=== PATIENT | female | born 1975 | race Caucasian/White ===

== ENCOUNTER 2017-11-22 21:03 | Emergency (ER) | payer OTHER, MEDICAID, SELFPAY ==
[2017-11-22 21:06] VITALS: BP 178/107; PULSE 112; RESP 18; TEMP 37.7; O2SAT 97; BMI 53.1
--- NOTE | 2017-11-22 21:15 | ED_ITS ---
HPI - Animal Bite <Carley Ly PA-C - Last Filed: 11/22/17 22:08> General Chief Complaint: Animal Bite Stated Complaint: CAT BITE LEFT ARM Time Seen by Provider: 11/22/17 21:14 Source: patient Mode of arrival: ambulatory Limitations: no limitations History of Present Illness HPI narrative: This 42 old female accidentally startled her cat that was lying next to her this morning, and it bit her in the left upper arm. She states that it is red and tender. She has not had any fever. She states that her arm is sore but she is able to move it normally. She states her cat is not vaccinated because she keeps that strictly indoors. She states in childhood she had sepsis secondary to a cat bite so thought she should come in and have this evaluated. She denies other concerns or complaints. She has not had a tetanus vaccine in the last 10 years Related Data Home Medications Medication Instructions Recorded Confirmed cholecalciferol (vitamin D3) 10,000 unit PO #0 02/27/16 [Vitamin D3] Previous Rx's Medication Instructions Recorded BUTALB/ACETAMINOPHEN/CAFFEINE 1 cap PO PRN PRN #30 cap 10/10/16 50/300/40 (Fioricet 50/300/40 MG) topiramate [Topamax] 50 mg PO HS #60 tab 06/12/17 amoxicillin-pot clavulanate 1 tab PO Q12H #19 tab 11/22/17 [Augmentin] Allergies Allergy/AdvReac Type Severity Reaction Status Date / Time latex Allergy Severe RASH Verified 11/22/17 21:12 morphine Allergy Mild EMESIS, Verified 11/22/17 21:12 ITCHING diclofenac Allergy Unknown Verified 11/22/17 21:12 Review of Systems <Carley Ly PA-C - Last Filed: 11/22/17 22:08> Review of Systems All systems reviewed & are unremarkable except as noted in HPI and below Exam <Carley Ly PA-C - Last Filed: 11/22/17 22:08> Narrative Exam Narrative: GENERAL APPEARANCE: Patient sitting comfortably, in no distress. LUNGS: Clear to auscultation bilaterally. HEART: Rate and rhythm regular without murmur, normal S1 and S2, no S3 or S4. DERMATOLOGIC: Left mid anterior upper arm there is a 7 cm diameter nummular mildly edematous patch with 4 scabbed central puncture wounds. It is pink, cool to touch with some faint central ecchymoses. On the posterior upper arm there are multiple linear abrasions NEUROVASCULAR: Left hand is warm and pink with brisk cap refill, sensation is grossly intact MUSCULOSKELETAL: Full range of motion of the left elbow, wrist, and hand. No joint effusion Initial Vital Signs Initial Vital Signs: Vital Signs Temperature 99.8 F H 11/22/17 21:06 Pulse Rate 112 H 11/22/17 21:06 Respiratory Rate 18 11/22/17 21:06 Blood Pressure 178/107 H 11/22/17 21:06 Pulse Oximetry 97 11/22/17 21:06 <Larry Salmeron DO - Last Filed: 11/23/17 05:05> Initial Vital Signs Initial Vital Signs: Vital Signs Temperature 99.8 F H 11/22/17 21:06 Pulse Rate 112 H 11/22/17 21:06 Respiratory Rate 18 11/22/17 21:06 Blood Pressure 178/107 H 11/22/17 21:06 Pulse Oximetry 97 11/22/17 21:06 Course <Carley Ly PA-C - Last Filed: 11/22/17 22:08> Orders Ordered: Discontinued Medications Amoxicillin/Clavulanate Potassium (Augmentin 875-125 Mg) 1 tab PO NOW ONE Stop: 11/22/17 21:24 Last Admin: 11/22/17 21:43 Dose: 1 tab Diphtheria/Tetanus/Acell Pertussis (Adacel) 0.5 ml IM .ONCE ONE Stop: 11/22/17 21:29 Last Admin: 11/22/17 21:44 Dose: 0.5 ml Ibuprofen (Advil) 800 mg PO NOW ONE Stop: 11/22/17 21:24 Last Admin: 11/22/17 21:43 Dose: 800 mg Vital Signs - 8 hr 11/22/17 21:06 Temperature 99.8 F H Pulse Rate 112 H Respiratory Rate 18 Blood Pressure 178/107 H Pulse Oximetry 97 <Larry Salmeron DO - Last Filed: 11/23/17 05:05> Orders Ordered: Discontinued Medications Amoxicillin/Clavulanate Potassium (Augmentin 875-125 Mg) 1 tab PO NOW ONE Stop: 11/22/17 21:24 Last Admin: 11/22/17 21:43 Dose: 1 tab Diphtheria/Tetanus/Acell Pertussis (Adacel) 0.5 ml IM .ONCE ONE Stop: 11/22/17 21:29 Last Admin: 11/22/17 21:44 Dose: 0.5 ml Ibuprofen (Advil) 800 mg PO NOW ONE Stop: 11/22/17 21:24 Last Admin: 11/22/17 21:43 Dose: 800 mg Vital Signs - 8 hr 11/22/17 21:06 Temperature 99.8 F H Pulse Rate 112 H Respiratory Rate 18 Blood Pressure 178/107 H Pulse Oximetry 97 Discharge Plan Departure Patient Disposition: Home, Self-Care Clinical Impression: Cat bite involving extremity Discharge Date/Time: 11/22/17 22:14 Interventions: ED Discharge Assessment Last Done: 11/22/17 22:13 Instructions: DI for Cat Bite Activity Restrictions/Additional Instructions: Monitor your arm for increased swelling, redness, pain or worsening signs of infection such as fever, and return if any over the weekend. 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 Continue ibuprofen for inflammation and swelling. I think some of the redness and tenderness in your arm is from bruising and soft tissue inflammation, but you are at high risk for infection as well so need to be monitored closely. Please follow up with PCP in a few days for recheck Prescriptions: New amoxicillin-pot clavulanate [Augmentin] 875-125 mg tablet 1 tab PO Q12H Qty: 19 RF: 0 No Action cholecalciferol (vitamin D3) [Vitamin D3] 4,000 UNIT capsule 10,000 unit PO Qty: 0 RF: 0 BUTALB/ACETAMINOPHEN/CAFFEINE 50/300/40 (Fioricet 50/300/40 MG) 1 cap PO PRN PRNQty: 30 RF: 1 topiramate [Topamax] 25 MG tablet 50 mg PO HS Qty: 60 RF: 3 Referrals: Felisha Serna PA-C [Primary Care Provider] - <Larry Salmeron DO - Last Filed: 11/23/17 05:05> Cosign ED Attending Joseature Attestation: I was immediately available in the department for consultation. Documentation has been reviewed. I agree with assessment and plan.
[2017-11-22] MEDS: IBUPROFEN 400 MG TABLET 800 MG PO (21:43)
[2017-11-22] MEDS: AMOXICILLIN/CLAV 875/125 MG 1 TAB PO (21:43)
[2017-11-22] MEDS: TET,DIPH,PERTUSS(ACELL),VAC/PF 0.5 ML SYRINGE IM (21:44)
== END 2017-11-22 22:14 | disposition home or self-care (01) ==
PROVIDERS: Emergency Provider Internal Medicine; Family Provider Physician Assistant; PCP Physician Assistant
DX: S41.152A Open bite of left upper arm, initial encounter (principal); W55.01XA Bitten by cat, initial encounter
CPT/HCPCS: 90471; 99283; 90715

== ENCOUNTER 2017-11-23 09:10 | Emergency (ER) | payer OTHER, MEDICAID, SELFPAY ==
[2017-11-23 09:17] VITALS: BP 178/98; PULSE 89; RESP 20; TEMP 37.1; O2SAT 98; BMI 52.7
--- NOTE | 2017-11-23 09:34 | DI.RAD.S_ITS ---
PROCEDURE: XR FOREARM RT 2V INDICATIONS: cat bite swelling r/o fb TECHNIQUE: 2 views of the forearm were acquired. COMPARISON: None. FINDINGS: Bones: No fractures or dislocations. No suspicious bony lesions. Soft tissues: No suspicious soft tissue calcifications or masses. IMPRESSION: Normal for age, source of current symptoms is not seen. No foreign body seen, no gas in the soft tissues found. Dictated by: Saul Hummel M.D. on 11/23/2017 at 10:11 Approved by: Saul Hummel M.D. on 11/23/2017 at 10:11
--- NOTE | 2017-11-23 09:38 | ED_ITS ---
HPI - Skin/Abscess/Foreign Bdy General Chief complaint: Skin/Abscess/Foreign Body Stated complaint: CAT BITE Time Seen by Provider: 11/23/17 09:17 Source: patient, family and old records reviewed History of Present Illness HPI narrative: Patient is a 42-year-old woman who presents with left arm pain. she was bit by her cat yesterday she was seen and evaluated rest evening 1 dose of her Augmentin. She feels like there was pus coming out this morning and that it is more red and swollen. She has no numbness or tingling. Onset (ago): day(s) Location: LUE Related Data Home Medications Medication Instructions Recorded Confirmed cholecalciferol (vitamin D3) 10,000 unit PO #0 02/27/16 [Vitamin D3] Previous Rx's Medication Instructions Recorded BUTALB/ACETAMINOPHEN/CAFFEINE 1 cap PO PRN PRN #30 cap 10/10/16 50/300/40 (Fioricet 50/300/40 MG) topiramate [Topamax] 50 mg PO HS #60 tab 06/12/17 amoxicillin-pot clavulanate 1 tab PO Q12H #19 tab 11/22/17 [Augmentin] Allergies Allergy/AdvReac Type Severity Reaction Status Date / Time latex Allergy Severe RASH Verified 11/22/17 21:12 morphine Allergy Mild EMESIS, Verified 11/22/17 21:12 ITCHING diclofenac Allergy Unknown Verified 11/22/17 21:12 Review of Systems Review of Systems All systems reviewed & are unremarkable except as noted in HPI and below Constitutional Denies chills, Denies fever(s), Denies lethargy and Denies weakness Cardiovascular Denies chest pain Respiratory Denies cough and Denies wheezing Musculoskeletal Reports system reviewed and no additional complaints, except as docu Integumentary/Breasts Reports as per HPI Neurologic Denies weakness Allergic/Immunologic Denies wheezing PFSH Medical History Environmental allergies (Chronic) Surgical History Status post knee surgery (05/27/11) Family History Father Age: 65 Heart disease Mother Age: 65 Heart disease Social History Smoking Status: Former smoker Tobacco: How many years used: 15 alcohol intake: current substance use type: does not use Exam Initial Vital Signs Initial Vital Signs: Vital Signs Temperature 98.8 F 11/23/17 09:17 Pulse Rate 89 11/23/17 09:17 Respiratory Rate 20 11/23/17 09:17 Blood Pressure 178/98 H 11/23/17 09:17 Pulse Oximetry 98 11/23/17 09:17 Const General: cooperative and well developed Nutritional Appearance: obese Orientation: alert, awake, oriented x3 and not confused Resp Effort & Inspection: normal respiratory effort Auscultation: clear to auscultation bilaterally Cardio Pulses: normal peripheral pulses Skin Other: erythema in that marked pen line noted on left arm. Very minimal extension beyond the line. There is no gross pus 3 puncture wounds noted. There scabbed over. Neuro General: alert, awake and oriented x3 Extrem Left upper extremity: elbow/forearm (Contusion, erythema and puncture wounds noted. No gross bony deformity) Details: swelling and distal pulses intact; no deformity Course Orders Ordered: ED Orders 11/23/17 09:34 XR forearm LT 2V Stat Vital Signs - 8 hr 11/23/17 09:17 11/23/17 10:29 Temperature 98.8 F Pulse Rate 89 83 Respiratory Rate 20 14 Blood Pressure 178/98 H Blood Pressure [Right Arm] 161/93 H Pulse Oximetry 98 100 MDM - Skin/Abscess/Foreign Bdy Imaging Data Left forearm: Attestation: I personally reviewed and interpreted this imaging study as follows: Radiologist's impression: PROCEDURE: XR FOREARM RT 2V INDICATIONS: cat bite swelling r/o fb TECHNIQUE: 2 views of the forearm were acquired. COMPARISON: None. FINDINGS: Bones: No fractures or dislocations. No suspicious bony lesions. Soft tissues: No suspicious soft tissue calcifications or masses. IMPRESSION: Normal for age, source of current symptoms is not seen. No foreign body seen, no gas in the soft tissues found. [facility] Narrative Medical decision making narrative: Patient only had 1 dose of Augmentin. She likely needs on longer. No significant extension of the erythema no gross pus no foreign body. Discussed warning signs of when to return to ED. Discharge Plan Departure Patient Disposition: Home, Self-Care Clinical Impression: Cat bite involving extremity Discharge Date/Time: 11/23/17 10:34 Interventions: ED Discharge Assessment Last Done: 11/23/17 10:31 Instructions: DI for Cat Bite Activity Restrictions/Additional Instructions: *You have been diagnosed with cat bite *What to do: keep arm elevated, ice 20 min at a time, just needs longer on antibiotics *Take medications as directed *Follow up with your primary care provider in 2-3 days, *Return to ER if you should have worsening redness beyond 2 fingers of redness , fever more than 100.4 or any new, worsening or concerning symptoms Prescriptions: No Action cholecalciferol (vitamin D3) [Vitamin D3] 4,000 UNIT capsule 10,000 unit PO Qty: 0 RF: 0 BUTALB/ACETAMINOPHEN/CAFFEINE 50/300/40 (Fioricet 50/300/40 MG) 1 cap PO PRN PRNQty: 30 RF: 1 topiramate [Topamax] 25 MG tablet 50 mg PO HS Qty: 60 RF: 3 amoxicillin-pot clavulanate [Augmentin] 875-125 mg tablet 1 tab PO Q12H Qty: 19 RF: 0 Referrals: Felisha Serna PA-C [Primary Care Provider] -
[2017-11-23 10:29] VITALS: BP 161/93; PULSE 83; RESP 14; O2SAT 100
== END 2017-11-23 10:34 | disposition home or self-care (01) ==
PROVIDERS: Emergency Provider Emergency Medicine; Family Provider Physician Assistant; PCP Physician Assistant
DX: S51.832A Puncture wound without foreign body of left forearm, initial encounter (principal); W55.01XA Bitten by cat, initial encounter
CPT/HCPCS: 73090; 99282; 99283

== ENCOUNTER → 2019-03-21 13:18 | Outpatient (CLI) | payer OTHER, MEDICAID, SELFPAY ==
--- NOTE | 2019-03-21 13:21 | DI.RAD.S_ITS ---
PROCEDURE: XR KNEE LT 3V INDICATIONS: r knee pain TECHNIQUE: 3 views of the knee were acquired. COMPARISON: [facility], CR, XR KNEE RT 3V, 03/21/2019, 13:22. FINDINGS: Bones: No fractures or dislocations. There is osteophytosis in the medial and patellofemoral compartments. Mild joint space narrowing is demonstrated in the medial compartment with subchondral sclerosis. No suspicious bony lesions. Soft tissues: There is a small joint effusion. No suspicious soft tissue calcifications. IMPRESSION: 1. Mild osteoarthritic changes including mild joint space narrowing in the medial compartment with osteophytosis. Dictated by: Hemanth Lopez M.D. on 03/21/2019 at 13:47 Approved by: Hemanth Lopez M.D. on 03/21/2019 at 13:48
--- NOTE | 2019-03-21 13:21 | DI.RAD.S_ITS ---
PROCEDURE: XR KNEE RT 3V INDICATIONS: r knee pain TECHNIQUE: 3 views of the knee were acquired. COMPARISON: None. FINDINGS: Bones: No fractures or dislocations. There is mild osteophytosis. Minimal joint space narrowing is noted in the medial compartment. No suspicious bony lesions. Soft tissues: There is a small joint effusion. No suspicious soft tissue calcifications. IMPRESSION: 1. Mild osteoarthritic changes including minimal joint space narrowing in the medial compartment. 2. Small joint effusion. Dictated by: Hemanth Lopez M.D. on 03/21/2019 at 13:45 Approved by: Hemanth Lopez M.D. on 03/21/2019 at 13:46
== END ==
PROVIDERS: PCP Family Medicine; Visit Provider Physician Assistant
DX: M25.561 Pain in right knee (principal); M25.462 Effusion, left knee; M25.461 Effusion, right knee; M25.762 Osteophyte, left knee; M25.761 Osteophyte, right knee
CPT/HCPCS: 73562

== ENCOUNTER → 2020-01-12 10:19 | Outpatient (CLI) | payer OTHER, MEDICAID, SELFPAY ==
--- NOTE | 2020-01-12 10:21 | DI.MRI.S_ITS ---
PROCEDURE: MR HEAD/BRAIN WO CON INDICATIONS: Intractible migraine with memory loss, personality change TECHNIQUE: Noncontrast axial T1 spin echo, axial T2 fast spin echo, sagittal and axial FLAIR, coronal T2 fast spin echo, axial gradient echo, axial diffusion and ADC through the brain. COMPARISON: [facility], CT, HEAD WITHOUT CONTRAST, 05/10/2015, 12:01. FINDINGS: Image quality: Excellent. CSF Spaces: Basal cisterns are patent. No extra-axial fluid collections. Ventricles are normal in size and shape. Brain: No intracranial hemorrhage, mass, or mass effect. Bocanegra/white matter interface is preserved. Brainstem appears normal. Diffusion-weighted images demonstrate no acute infarcts. Normal intravascular flow voids are present. Skull and face: Calvarium has normal marrow signal. Orbits appear normal. Sinuses: There is minimal mucosal thickening in the ethmoid sinuses. Partial fluid opacification is demonstrated in the mastoid air cells, left greater than right. IMPRESSION: 1. Partial opacification of the mastoid air cells, left greater than right, suggestive of mastoiditis. 2. Otherwise, no acute intracranial abnormality. Dictated by: Hemanth Lopez M.D. on 01/12/2020 at 11:46 Approved by: Hemanth Lopez M.D. on 01/12/2020 at 11:49
== END ==
PROVIDERS: PCP Student in an Organized Health Care Education/Training Program; Referring Provider Student in an Organized Health Care Education/Training Program; Visit Provider Student in an Organized Health Care Education/Training Program
DX: G43.909 Migraine, unspecified, not intractable, without status migrainosus (principal); R41.3 Other amnesia; Z86.73 Personal history of transient ischemic attack (TIA), and cerebral infarction without residual deficits
CPT/HCPCS: 70551

== ENCOUNTER 2021-03-14 10:22 | Emergency (ER) | payer OTHER, MEDICAID, SELFPAY ==
[2021-03-14 10:26] VITALS: BP 176/100; PULSE 106; RESP 15; TEMP 36.8; O2SAT 98; BMI 50.1
[2021-03-14 11:22] LABS: COVID19 -Nasal RAPID Negative (Negative)
--- NOTE | 2021-03-14 11:32 | ED_ITS ---
HPI - Recheck/Abnormal Lab/Rx General Chief Complaint: Recheck/Abnormal Lab/Rx Stated Complaint: partner covid positive Time Seen by Provider: 03/14/21 10:57 Source: patient Mode of arrival: Ambulatory Limitations: no limitations History of Present Illness HPI narrative: Patient is a 45-year-old female. She is unvaccinated against COVID-19. States that her fiance is here because he is having COVID like symptoms and she would like to be tested. She has no chest pain. No shortness of breath. No fevers. Related Data Home Medications Medication Instructions Recorded Confirmed cetirizine 10 mg tablet (Zyrtec) 10 mg PO DAILY 12/18/18 09/08/20 multivitamin-ferrous 1 tab PO DAILY 12/18/18 09/08/20 fumarate-folic acid 18 mg-400 mcg tablet (Centrum Complete) amitriptyline 10 mg tablet 10 mg PO BEDTIME 10/11/20 Previous Rx's Medication Instructions Recorded fluticasone propionate 50 1 spray NASAL DAILY #19.8 gram 10/11/20 mcg/actuation nasal spray,suspension (Flonase Allergy Relief) rizatriptan 5 mg tablet 10 mg PO BID #21 tab MDD 15mg 10/11/20 topiramate 100 mg tablet 100 mg PO HS #135 tab 11/14/20 Allergies Allergy/AdvReac Type Severity Reaction Status Date / Time latex Allergy Severe RASH Verified 03/14/21 10:36 morphine Allergy Mild EMESIS, Verified 03/14/21 10:36 ITCHING diclofenac Allergy Unknown Verified 03/14/21 10:36 Review of Systems Constitutional Constitutional: Reports system reviewed and no additional complaints, except as documented Cardiovascular Cardiovascular: Reports system reviewed and no additional complaints, except as documented Respiratory Respiratory: Reports system reviewed and no additional complaints, except as d ocumented Gastrointestinal Gastrointestinal: Reports system reviewed and no additional complaints, except as documented Integumentary/Breasts Skin/Breast: Reports system reviewed and no additional complaints, except as documented Hematologic/Lymphatic On Anticoagulants: No Patient History Medical History Environmental allergies Left otitis media Surgical History Status post knee surgery (05/27/11) Family History (Updated 03/28/15 @ 00:00 by ARMANDO Shanks) Father Age: 68 Heart disease Mother Age: 68 Heart disease Social History Smoking Status: Former smoker Tobacco: How many years used: 15 alcohol intake: current substance use type: does not use Smoking Status: Former smoker alcohol intake frequency: holidays/special occasions only Substance Use Type: does not use Exam Initial Vital Signs Initial Vital Signs: Vital Signs Temperature 98.3 F 03/14/21 10:26 Pulse Rate 106 H 03/14/21 10:26 Respiratory Rate 15 03/14/21 10:26 Blood Pressure 176/100 H 03/14/21 10:26 Pulse Oximetry 98 03/14/21 10:26 HENMT Head: normal to inspection and normocephalic Resp Effort & Inspection: normal respiratory effort Cardio Palpation: normal PMI Skin General: no rashes or lesions noted Neuro General: patient alert, patient awake, patient oriented x3 and moves all extr emities Course Orders Ordered: ED Orders 03/14/21 10:42 COVID19 -Nasal swab/Pre-Proc Stat Vital Signs Vital signs: Vital Signs - 8 hr 03/14/21 10:26 Temperature 98.3 F Pulse Rate 106 H Respiratory Rate 15 Blood Pressure 176/100 H Pulse Oximetry 98 MDM - Recheck/Abnormal Lab/Rx Lab Data Labs: Lab Results 03/14/21 Range/Units 10:42 SARS-CoV-2 (PCR) Negative (Negative) MDM Narrative Medical decision making narrative: Patient is COVID negative. She has no respiratory distress. She is afebrile. Not hypoxic. She is unvaccinated. I did offer her the vaccine however she declined. She is living with an individual who is COVID positive. Informed her that she most likely will get the infection. I informed her that if she starts to develop symptoms that she does need to quarantine herself and I would assume that she is positive. She was given return precautions. We also discussed that her quarantine starts the day that her partners quarantine ends if she does not develop any symptoms. She expressed understanding and agreement. Discharge Plan Departure Patient Disposition: Home Clinical Impression: Encounter for laboratory testing for COVID-19 virus Instructions: About the COVID-19 Vaccine, Can COVID-19 be prevented? Activity Restrictions/Additional Instructions: Your COVID-19 test today was negative however given to your unvaccinated status in the fact that you are in close proximity with an individual who is positive you will most likely come down with COVID-19. If you start have problems breathing you do need to return to the emergency department. Contact her primary doctor for follow-up. Continue all of your medications as directed. Prescriptions: No Action fluticasone propionate [Flonase Allergy Relief] 50 mcg/actuation spray,suspension 1 spray NASAL DAILY Qty: 19.8 RF: 5 amitriptyline 10 mg tablet 10 mg PO BEDTIME RF: 0 rizatriptan 5 mg tablet 10 mg PO BID MDD 15mg Qty: 21 RF: 5 topiramate 100 mg tablet 100 mg PO HS Qty: 135 RF: 1 Centrum Complete 18-400 mg-mcg tablet 1 tab PO DAILY RF: 0 cetirizine [Zyrtec] 10 mg tablet 10 mg PO DAILY RF: 0 Referrals: Robert Han MD [Primary Care Provider] -
[2021-03-14 11:46] VITALS: BP 152/81; PULSE 90; TEMP 37.1; O2SAT 99
== END 2021-03-14 11:56 | disposition home or self-care (01) ==
PROVIDERS: Emergency Provider Emergency Medicine; PCP Student in an Organized Health Care Education/Training Program
DX: Z20.822 Contact with and (suspected) exposure to COVID-19 (principal)
CPT/HCPCS: 87635; 99282; C9803

== ENCOUNTER → 2021-03-23 12:46 | Outpatient (CLI) | payer OTHER, MEDICAID, SELFPAY ==
[2021-03-23 13:52] LABS: Influenza A - CEPHEID Flu A NEGATIVE (NEGATIVE); Influenza B - CEPHEID Flu B NEGATIVE (NEGATIVE)
[2021-03-23 14:14] LABS: COVID19 -Nasal RAPID POSITIVE (Negative)
== END ==
PROVIDERS: PCP Student in an Organized Health Care Education/Training Program; Visit Provider Nurse Practitioner
DX: U07.1 COVID-19 (principal)
CPT/HCPCS: 87502; 87635

== ENCOUNTER 2021-03-26 15:49 | Emergency (ER) | payer OTHER, MEDICAID, SELFPAY ==
[2021-03-26 15:58] VITALS: BP 204/104; PULSE 107; RESP 24; TEMP 36.1; O2SAT 100
[2021-03-26 16:01] VITALS: BP 178/93; PULSE 101; RESP 19; O2SAT 98
--- NOTE | 2021-03-26 16:01 | DI.RAD.S_ITS ---
PROCEDURE: XR CHEST 1V INDICATIONS: cough, SOB, worsening symptoms, COVID+ TECHNIQUE: One view of the chest was acquired. COMPARISON: None. FINDINGS: Surgical changes and devices: None. Lungs and pleura: Patchy bibasilar opacities are present. Mediastinum: Mediastinal contours appear normal. Heart size is within normal limits. Bones and chest wall: No suspicious bony lesions. Overlying soft tissues appear unremarkable. IMPRESSION: Patchy bibasilar opacities suggestive of airspace disease such as pneumonia. However, exam is limited secondary to poor inspiratory effort. Dictated by: Dalila Schaeffer M.D. on 03/26/2021 at 16:27 Approved by: Dalila Schaeffer M.D. on 03/26/2021 at 16:27
--- NOTE | 2021-03-26 16:22 | ED_ITS ---
HPI - SOB/Dyspnea General Chief Complaint: Shortness of Breath/Dyspnea Stated Complaint: SOB COVID POSITIVE Time Seen by Provider: 03/26/21 15:51 Source: patient Mode of arrival: Ambulatory History of Present Illness HPI Narrative: 45F nonsmoker with known COVID on day 10 of symptoms presents because her symptoms had improved some, but now she has increased dry hacking cough. She denies any dizziness, weakness or lightheadedness. She no longer has any fever or chills. Her cough is dry and does not produce sputum. She denies GI symptoms such as vomiting or diarrhea. Related Data Home Medications Medication Instructions Recorded Confirmed cetirizine 10 mg tablet (Zyrtec) 10 mg PO DAILY 12/18/18 03/26/21 multivitamin-ferrous 1 tab PO DAILY 12/18/18 03/23/21 fumarate-folic acid 18 mg-400 mcg tablet (Centrum Complete) amitriptyline 10 mg tablet 10 mg PO BEDTIME 10/11/20 03/23/21 topiramate 100 mg tablet See Rx Instructions .ROUTE .COMPLEX 03/26/21 03/26/21 Previous Rx's Medication Instructions Recorded fluticasone propionate 50 1 spray NASAL DAILY #19.8 gram 10/11/20 mcg/actuation nasal spray,suspension (Flonase Allergy Relief) rizatriptan 5 mg tablet 10 mg PO BID #21 tab MDD 15mg 10/11/20 albuterol sulfate 90 mcg/actuation 2 inh INHALATION Q4H PRN #1 each 03/26/21 breath activated powder inhaler benzonatate 100 mg capsule 100 mg PO TID PRN #14 cap 03/26/21 (Pedro Luis Granado) Allergies Allergy/AdvReac Type Severity Reaction Status Date / Time latex Allergy Severe RASH Verified 03/26/21 16:28 morphine Allergy Mild EMESIS, Verified 03/26/21 16:28 ITCHING diclofenac Allergy Unknown Verified 03/26/21 16:28 Review of Systems Review of Systems Narrative: GENERAL: Denies chills, fatigue, malaise, fever, sweats. HEENT: Denies sinus pain, ear pain, sore throat, difficulty swallowing, dizziness. RESPIRATORY: See HPI CARDIOVASCULAR: Denies chest pain, palpitations, orthopnea, edema, GASTROINTESTINAL: Denies nausea, vomiting, abdominal pain, diarrhea, constipation, melena. : Denies dysuria, frequency, incontinence, hematuria, urinary retention. MUSCULOSKELETAL: denies weakness, joint pain, or bony pain SKIN: Denies rash, skin lesions, or other NEUROLOGIC: Denies weakness, headache, numbness, change in speech, confusion, seizures, incoordination. PSYCHIATRIC: No concerning psychosocial issues. 12 point review of systems is negative except for those stated above Patient History Medical History Environmental allergies Left otitis media Surgical History Status post knee surgery (05/27/11) Family History Father Age: 68 Heart disease Mother Age: 68 Heart disease Social History Smoking Status: Former smoker Tobacco: How many years used: 15 alcohol intake: current substance use type: does not use Smoking Status: Former smoker alcohol intake frequency: holidays/special occasions only Substance Use Type: marijuana Exam Narrative Exam Narrative: GENERAL: [45] year old patient appears stated age. Well- developed patient, in mild distress. HEAD: Atraumatic. Normocephalic. EYES: Pupils equal round and reactive. Extraocular motions intact. No scleral icterus. No injection or drainage. ENT: Nose without bleeding, purulent drainage. Throat without erythema, tonsillar hypertrophy or exudate. Airway patent. NECK: Trachea midline. Non tender CARDIOVASCULAR: Regular rate and rhythm without murmurs, gallops, or rubs. RESPIRATORY: Dry hacking cough, faint crackles noted at bases GASTROINTESTINAL: Abdomen soft, non-tender, nondistended. EXTREMITIES: No edema or joint tenderness. BACK: Nontender without deformity or crepitance. No flank tenderness. NEURO: AOx3. SKIN: No rash or erythema of visible areas Initial Vital Signs Initial Vital Signs: Vital Signs Temperature 97 F L 03/26/21 15:58 Pulse Rate 107 H 03/26/21 15:58 Respiratory Rate 24 03/26/21 15:58 Blood Pressure 204/104 H 03/26/21 15:58 Pulse Oximetry 100 03/26/21 15:58 Course Orders Ordered: ED Orders 03/26/21 16:01 XR chest 1V Stat Vital Signs Vital signs: Vital Signs - 8 hr 03/26/21 15:58 03/26/21 16:01 Temperature 97 F L Pulse Rate 107 H 101 H Respiratory Rate 24 19 Blood Pressure 204/104 H 178/93 H Pulse Oximetry 100 98 MDM - SOB/Dyspnea Imaging Data Chest x-ray: Radiologist's Impression: Yris Avendano??45??F??1975 ? Allergy/Adv: latex, morphine, diclofenac Close Chest X-Ray (Signed) Dalila Schaeffer - 03/26/21 Brain MRI (Signed) Hemanth Lopez - 01/12/20 Knee X-Ray (Signed) Lpoez,Hemanth - 03/21/19 Knee X-Ray (Signed) Lopez,Hemanth - 03/21/19 Forearm X-Ray (Signed) Saul Hummel - 11/23/17 [address] [address] XRay Report Signed Patient: Yris Avendano MR#: [id number] : 1975 Acct:[id number] Age/Sex: 45 / F Date of Service: 03/26/21 Loc: ED Accession Number: [id number] ?? Procedure: XR chest 1V Ordering Provider: Larry Salmeron D.O. PROCEDURE:? XR CHEST 1V ? INDICATIONS:? cough, SOB, worsening symptoms, COVID+ ? TECHNIQUE:? One view of the chest was acquired.? ? COMPARISON:? None. ? FINDINGS:? ? Surgical changes and devices:? None.? ? Lungs and pleura:? Patchy bibasilar opacities are present. ? Mediastinum:? Mediastinal contours appear normal.? Heart size is within normal limits. ? Bones and chest wall:? No suspicious bony lesions.? Overlying soft tissues appea r unremarkable.? ? IMPRESSION:? Patchy bibasilar opacities suggestive of airspace disease such as pneumonia. ?However, exam is limited secondary to poor inspiratory effort. ? ? Dictated by: Dalila Schaeffer M.D. on 03/26/2021 at 16:27 ? ? Approved by: Dalila Schaeffer M.D. on 03/26/2021 at 16:27 ? MDM Narrative Medical decision making narrative: Well-appearing 45-year-old female and day 10 of symptomatic COVID. She has no significant work of breathing nor requirement for supplemental oxygen. She has a very reassuring physical exam and vital signs. We have been in touch with infusion solutions regarding the possibility of monoclonal antibodies but she is too far into her illness to meet their criteria. She has been given return precautions and questions been answered to her apparent satisfaction. Discharge Plan Departure Patient Disposition: Home Clinical Impression: COVID-19 Instructions: DI for COVID-19 (Suspected or Confirmed ) Activity Restrictions/Additional Instructions: *You have been diagnosed with [ COVID-19] *What to do: * per recommendations from the CDC and the [facility] Department of Health * stay home except to get medical care. Restrict activities outside your home, except for getting medical care. Do not go to work, school, or public areas. Avoid using public transportation, ride sharing, or taxis. * separate yourself from other people in your home. * call ahead before visiting your doctor * Wear a facemask * Cover your coughs and sneezes * Clean your hands often * Avoid sharing household items * Clean all high-touch services every day * Monitor your symptoms and seek prompt medical attention if your illness is worsening, particularly with difficulty in breathing. You may discontinue your isolation when: 1. You have been fever-free for at least 24 hours without the use of fever reducing medication, AND 2. Your symptoms are getting better 3. At least 10 days have passed since symptoms first appeared Individuals with laboratory confirmed COVID-19 who have not had any symptoms may discontinue home isolation when at least 10 days have passed since the date of their first COVID-19 diagnostic test and have had no subsequent illness Prescriptions: New albuterol sulfate 90 mcg/actuation aerosol powdr breath activated 2 inh INHALATION Q4H PRN (Reason: shortness of breath or wheezing) Qty: 1 RF: 0 benzonatate [Tessalon Perles] 100 mg capsule 100 mg PO TID PRN (Reason: cough) Qty: 14 RF: 0 No Action fluticasone propionate [Flonase Allergy Relief] 50 mcg/actuation spray,suspension 1 spray NASAL DAILY Qty: 19.8 RF: 5 amitriptyline 10 mg tablet 10 mg PO BEDTIME RF: 0 rizatriptan 5 mg tablet 10 mg PO BID MDD 15mg Qty: 21 RF: 5 Centrum Complete 18-400 mg-mcg tablet 1 tab PO DAILY RF: 0 cetirizine [Zyrtec] 10 mg tablet 10 mg PO DAILY RF: 0 topiramate 100 mg tablet See Rx Instructions .ROUTE .COMPLEX RF: 0 Referrals: Robert Han MD [Primary Care Provider] -
[2021-03-26 16:30] VITALS: BP 170/84; PULSE 100; O2SAT 99
== END 2021-03-26 16:40 | disposition home or self-care (01) ==
PROVIDERS: Emergency Provider Emergency Medicine; PCP Student in an Organized Health Care Education/Training Program
DX: U07.1 COVID-19 (principal); R06.02 Shortness of breath; R05 Cough
CPT/HCPCS: 71045; 99283

== ENCOUNTER 2021-06-04 13:56 | Emergency (ER) | payer OTHER, MEDICAID, SELFPAY ==
[2021-06-04 14:12] VITALS: BP 184/113; PULSE 111; RESP 18; TEMP 37.1; O2SAT 96; BMI 51.9
[2021-06-04 16:28] VITALS: O2SAT 98
[2021-06-04 16:29] VITALS: BP 192/94; PULSE 108; O2SAT 100
[2021-06-04] MEDS: PROPARACAINE 0.5% OPHTH SOL 1 DROPS EYE-LEFT (16:34)
[2021-06-04] MEDS: FLUORESCEIN 1 MG STRIP EYE-LEFT (16:34)
--- NOTE | 2021-06-04 16:44 | PC.NURSE ---
Cannot due visual acuity because patient has -9.50 visual acuity at baseline and does not have glasses to check vision.
--- NOTE | 2021-06-04 17:06 | ED_ITS ---
HPI - Eye Problem General Chief complaint: Eye Problems Stated complaint: Can't see out of left eye x30 mins Time Seen by Provider: 06/04/21 14:09 Source: patient Mode of arrival: Ambulatory Limitations: no limitations History of Present Illness HPI Narrative: 46-year-old woman with history of abdomen a, morbid obesity, recently started on cyclobenzaprine for sciatic back pain who presents with vision complaints in her left eye. She wears daily contact lenses typically were some for 72 hours continuously at a time. The right eye she went to scratch and the contact pop out she replaced it with a new lands and found that her vision was blurred and Prismatic with the lens in place. She tried a 2nd new lens with similar findings. She has significant vision correction in the -9.5 range. She notes without the contact that she can see up close but can not see further away as would be expected with her uncorrected vision. She states that the eye itself feels scratchy and irritated. She describes no redness, discharge, no headaches no neurologic complaints. Related Data Home Medications Medication Instructions Recorded Confirmed cetirizine 10 mg tablet (Zyrtec) 10 mg PO DAILY 12/18/18 05/25/21 multivitamin-ferrous 1 tab PO DAILY 12/18/18 05/25/21 fumarate-folic acid 18 mg-400 mcg tablet (Centrum Complete) amitriptyline 10 mg tablet 10 mg PO BEDTIME 10/11/20 05/25/21 topiramate 100 mg tablet See Rx Instructions .ROUTE .COMPLEX 03/26/21 05/25/21 Previous Rx's Medication Instructions Recorded fluticasone propionate 50 1 spray NASAL DAILY #19.8 gram 10/11/20 mcg/actuation nasal spray,suspension (Flonase Allergy Relief) rizatriptan 5 mg tablet 10 mg PO BID #21 tab MDD 15mg 10/11/20 albuterol sulfate 90 mcg/actuation 2 puff INHALATION Q4H PRN #8.5 g 04/09/21 aerosol inhaler cyclobenzaprine 5 mg tablet 5 mg PO TID PRN #14 tab 05/25/21 Allergies Allergy/AdvReac Type Severity Reaction Status Date / Time latex Allergy Severe RASH Verified 06/04/21 14:22 morphine Allergy Mild EMESIS, Verified 06/04/21 14:22 ITCHING diclofenac Allergy Unknown Verified 06/04/21 14:22 Review of Systems Review of Systems Narrative: Remainder of complete review of systems is otherwise unremarkable except for that included in the HPI. Patient History Medical History Environmental allergies Left otitis media Surgical History Status post knee surgery (05/27/11) Family History Father Age: 68 Heart disease Mother Age: 68 Heart disease Social History Smoking Status: Former smoker Tobacco: How many years used: 15 alcohol intake: current substance use type: does not use Smoking Status: Former smoker alcohol intake frequency: a few times a month Substance Use Type: marijuana Exam Narrative Exam Narrative: General: Alert appropriate in no acute distress HEENT: No scleral icterus or drainage. Left eye is grossly normal to initial exam. Slit lamp exam suggests no obvious abnormalities. Fluorescein staining with slit lamp again has no abnormalities. Specifically no fluorescein uptake and no evidence of keratoconjunctivitis. Respiratory: Able to speak in full sentences, no obvious respiratory distress Skin: No obvious rashes, warm and dry Neurologic: Grossly intact no obvious asymmetries or abnormalities Psych: appropriate insight and affect, cooperative Initial Vital Signs Initial Vital Signs: Vital Signs Temperature 98.8 F 06/04/21 14:12 Pulse Rate 111 H 06/04/21 14:12 Respiratory Rate 18 06/04/21 14:12 Blood Pressure 184/113 H 06/04/21 14:12 Pulse Oximetry 96 06/04/21 14:12 Course Orders Ordered: Discontinued Medications Fluorescein Sodium (Fluorescein 1 Mg Strip) 1 mg EYE-LEFT NOW ONE Stop: 06/04/21 14:26 Last Admin: 06/04/21 16:34 Dose: 1 mg Documented by: AREN Proparacaine HCl (Proparacaine 0.5% Ophth Mabel) 1 drops EYE-LEFT NOW ONE Stop: 06/04/21 14:25 Last Admin: 06/04/21 16:34 Dose: 1 drop Documented by: AREN Vital Signs Vital signs: Vital Signs - 8 hr 06/04/21 14:12 06/04/21 16:28 06/04/21 16:29 Temperature 98.8 F Pulse Rate 111 H 108 H Respiratory Rate 18 Blood Pressure 184/113 H 192/94 H Pulse Oximetry 96 98 100 MDM - Eye Problem MDM Narrative Medical decision making narrative: 46-year-old woman who accidentally removed a left contact lens after the had been in her eye for close to 72 hours. She does not describe it as significantly traumatic but did feel some pulling as the lens dislodged. After that she was having abnormal vision with new contact applied. Baseline vision when the contact is not in the eye. Slit-lamp exam is unremarkable there is no evidence of retained contact, other foreign body, keratoconjunctivitis, corneal abrasions or lacerations. Reassurance is given. Suggested that she give her eyes at least 72 hours without contacts in. She states that she does have an old pair of glasses that she can probably suffice with for that period of time. Recommended that she follow-up with her eye doctor specifically. She was concerned that her cyclobenzaprine, recently added, might be causing her symptoms. I do not think that a systemic medication would acutely cause a monocular problem. Reassurance is given and she is safe for home discharge Discharge Plan Departure Patient Disposition: Home Clinical Impression: Eye abnormality Instructions: DI for Eye Pain Activity Restrictions/Additional Instructions: Thank you for coming in today I suspect that when the contact lens from your left eye popped out so abruptly that there was a minor amount of swelling to the surface of the eye ball which is why a new contact lens has that prism appearance and is uncomfortable. With microscopic exam of the surface of your eye, I did not find any abrasions, cuts or infections. There is a finding that we can see with continuous contact use called keratoconjunctivitis. You do not have that today I would recommend that you leave both contacts out for 2-3 days and depend on your eye glasses. I would recommend that you follow-up with your [facility] minist[facility] director with their next available appointment. I wish you the best Prescriptions: No Action cyclobenzaprine 5 mg tablet 5 mg PO TID PRN (Reason: muscle spasm) Qty: 14 0RF fluticasone propionate [Flonase Allergy Relief] 50 mcg/actuation spray,suspension 1 spray NASAL DAILY Qty: 19.8 5RF amitriptyline 10 mg tablet 10 mg PO BEDTIME 0RF rizatriptan 5 mg tablet 10 mg PO BID MDD 15mg Qty: 21 5RF albuterol sulfate 90 mcg/actuation HFA aerosol inhaler 2 puff inhalation Q4H PRN (Reason: shortness of breath or wheezing) Qty: 8.5 0RF Rx Instructions: administer with spacer Centrum Complete 18-400 mg-mcg tablet 1 tab PO DAILY 0RF cetirizine [Zyrtec] 10 mg tablet 10 mg PO DAILY 0RF topiramate 100 mg tablet See Rx Instructions .ROUTE .COMPLEX 0RF Rx Instructions: 100mg in morning 300mg in evening NEED TO FOLLOW UP W/PCP PRIOR TO FUTURE FILLS. PLEASE CALL TO SCHED FUTURE APPT. THANKS. 02/23/20 Referrals: Robert Han MD [Primary Care Provider] -
[2021-06-04 17:16] VITALS: BP 180/100; PULSE 97; O2SAT 92
== END 2021-06-04 17:23 | disposition home or self-care (01) ==
PROVIDERS: Emergency Provider Emergency Medicine; PCP Student in an Organized Health Care Education/Training Program
DX: H53.8 Other visual disturbances (principal)
CPT/HCPCS: 99282

== ENCOUNTER → 2021-12-06 15:51 | Outpatient (CLI) | payer OTHER, MEDICAID, SELFPAY ==
--- NOTE | 2021-12-06 15:53 | DI.RAD.S_ITS ---
PROCEDURE: XR KNEE LT 3V INDICATIONS: Left knee pain after injury Three 3>> views of the knee were acquired. COMPARISON: [facility], , XR KNEE LT 3V, 03/21/2019, 13:22. FINDINGS: Bones: No fractures or dislocations. No suspicious bony lesions. Moderate joint space narrowing is seen at the medial femorotibial compartment. Tiny marginal osteophytes are seen in all 3 compartments. Soft tissues: No joint effusion. No suspicious soft tissue calcifications. IMPRESSION: Moderate medial femorotibial compartment osteoarthrosis, which appears similar when compared to the exam from 03/21/2019. Dictated by: Jeremy Douglas M.D. on 12/06/2021 at 16:48 Approved by: Jeremy Douglas M.D. on 12/06/2021 at 16:49
== END ==
PROVIDERS: PCP Student in an Organized Health Care Education/Training Program; Referring Provider Student in an Organized Health Care Education/Training Program; Visit Provider Student in an Organized Health Care Education/Training Program
DX: M25.562 Pain in left knee (principal); Z87.828 Personal history of other (healed) physical injury and trauma; M17.12 Unilateral primary osteoarthritis, left knee
CPT/HCPCS: 73562

== ENCOUNTER 2022-11-20 10:54 | Outpatient (CLI) | payer OTHER, MEDICAID, SELFPAY ==
--- NOTE | 2022-11-20 10:56 | DI.RAD.S_ITS ---
PROCEDURE: PAIN L/S TRANSFORAMINAL INJECT INDICATIONS: SPONDYLOSIS COMPARISON: Outside Film, MR, MR LUMBAR SPINE WITHOUT CONTRAST, 05/30/2022, 16:10. CR, XR KNEE LT 3V, 12/06/2021, 16:03. FINDINGS: Fluoroscopic spot filming was performed to verify placement of spinal needles at the right L5-S1 level(s), as labeled on the films. Appropriate location(s) of the needle tip(s) was confirmed by injection of iodinated contrast. IMPRESSION: Fluoroscopy for pain management. Dictated by: Claudia Pina M.D. on 11/20/2022 at 13:39 Approved by: Claudia Pina M.D. on 11/20/2022 at 13:39
[2022-11-20 11:06] VITALS: BP 147/93; PULSE 96; RESP 20; TEMP 36.5; O2SAT 100
[2022-11-20 11:37] VITALS: BP 189/93; PULSE 83; RESP 26; O2SAT 99
[2022-11-20 11:40] VITALS: BP 196/100; PULSE 79; RESP 19; O2SAT 100
[2022-11-20] MEDS: DEXAMETHASONE 10 MG/ML VIAL 20 MG INJ (11:42)
[2022-11-20] MEDS: IOPAMIDOL 15 ML VIAL 3 ML INJ (11:42)
[2022-11-20 11:45] VITALS: BP 187/110; PULSE 80; RESP 19; O2SAT 100
[2022-11-20 11:50] VITALS: BP 182/105; PULSE 82; RESP 20; O2SAT 100
[2022-11-20 12:00] VITALS: BP 140/92; PULSE 86; RESP 20; O2SAT 100
--- NOTE | 2022-11-20 12:10 | P.PCN_ITS ---
Date/Time/Diagnoses Date of procedure: 11/20/22 Time of procedure: 11:30 Procedure Notes Physician: Vargas Medina Total Fluoroscopy time (seconds): 54 Total sedation minutes: 0 Procedure in detail & Post-procedure care: Right L5-S1 Transforaminal Epidural Steroid Injection Indications: Yris is presenting for treatment of lumbar radiculopathy with low back and leg pain. Preoperative diagnosis: Right lumbar radiculopathy Postoperative diagnosis: Same Focused Examination: Ax3 Mood and affect are normal Vital Signs: VSS Consent: Following review of allergies and potential side effects/complications, including, but not necessarily limited to, infection, allergic reaction, local tissue breakdown, stroke, temporary or permanent nerve injury, paralysis, and possible , the patient indicated that they understood and agreed to proceed.? An informed consent document was signed by the patient, witnessed by a nurse and placed in the patient's chart.? Additionally, other treatment options including medications and physical therapy were reviewed with the patient. All questions were answered. Site was then marked. Anesthesia: Local Position: Prone Monitoring: NIBP, Pulse oximetry, 3 lead EKG Needle used: 22G 8 inch spinal needle Contrast: Isovue 300M Injectate: 15 mg Dexamethasone mixed with 1% lidocaine 1.5 ml Technique: The skin was prepped with chloraprep and draped in a sterile fashion. Time out was performed as per protocol. Oxygen applied via NC. Skin and subcutaneous structures of the needle entry site were infiltrated with 3mL of lidocaine 1%. Under fluoroscopic guidance, using an ipsilateral oblique view,?a 22 gauge case 8 inch needle was advanced to the base of the right L5?pedicle.? The needle was advanced to the superio-posterior aspect of the neural foramen under lateral view.? Oblique and AP views were rechecked. No paresthesias noted by the patient during needle placement. In AP view and utilizing real-time digital subtraction fluoroscopy, 2 ml contrast was slowly injected. Epidural spread was observed without evidence for intravascular nor intrathecal uptake. Contrast spread was seen craniocaudally. The above injectate was then administered, and the needle was subsequently withdrawn. Band-Aids applied to injection sites. EBL: less than 1 ml Complications: None Post Procedure: Patient was taken to the recovery and monitored. The patient was provided a Pain Log to continue to record the patient's response to the target- specific procedure prior to the patient's follow-up visit with the referring physician. Patient was stable upon discharge. Detailed post procedure instructions were provided. Patient was asked to call in the event of worsening pain, fever, weakness, numbness or bladder or bowel incontinence.
== END 2022-11-20 12:10 | disposition home or self-care (01) ==
PROVIDERS: PCP Student in an Organized Health Care Education/Training Program; Referring Provider Anesthesiology; Visit Provider Anesthesiology
DX: M54.16 Radiculopathy, lumbar region (principal)
CPT/HCPCS: 64483; J1100

== ENCOUNTER 2023-01-01 08:15 | Outpatient (CLI) | payer OTHER, MEDICAID, SELFPAY ==
--- NOTE | 2023-01-01 08:18 | DI.RAD.S_ITS ---
PROCEDURE: PAIN L INTERLAMINAR/CAUDAL INJ INDICATIONS: SPONDYLOSIS COMPARISON: None. FINDINGS: Fluoroscopic spot filming was performed to verify placement of spinal needles at the lower lumbar level(s), as labeled on the films. Appropriate location(s) of the needle tip(s) was confirmed by injection of iodinated contrast. IMPRESSION: Needle placement as above. Dictated by: Sasha Carroll M.D. on 01/01/2023 at 11:49 Approved by: Sasha Carroll M.D. on 01/01/2023 at 11:49
[2023-01-01 08:30] VITALS: BP 147/73; PULSE 83; RESP 12; TEMP 36.3; O2SAT 99
[2023-01-01 09:06] VITALS: BP 191/101; PULSE 82; RESP 24; O2SAT 100
[2023-01-01 09:10] VITALS: BP 177/102; PULSE 72; RESP 15; O2SAT 100
[2023-01-01] MEDS: DEXAMETHASONE 10 MG/ML VIAL 20 MG INJ (09:10)
[2023-01-01] MEDS: IOPAMIDOL 15 ML VIAL 3 ML INJ (09:10)
[2023-01-01 09:13] VITALS: BP 167/103; PULSE 66; RESP 16; O2SAT 100
[2023-01-01 09:18] VITALS: BP 150/89; PULSE 90; RESP 16; O2SAT 100
--- NOTE | 2023-01-01 09:18 | P.PCN_ITS ---
Date/Time/Diagnoses Date of procedure: 01/01/23 Time of procedure: 08:45 Procedure Notes Physician: Vargas Medina Total Fluoroscopy time (seconds): 11 Total sedation minutes: 0 Procedure in detail & Post-procedure care: L4-5 Interlaminar Epidural Steroid Injection Indications: Yris is presenting for treatment of lumbar radiculopathy with low back and leg pain. Preoperative diagnosis: Lumbar radiculopathy Postoperative diagnosis: Same Focused Examination: Ax3 Mood and affect are normal Vital Signs: VSS Consent: Following review of allergies and potential side effects/complications, including, but not necessarily limited to, infection, allergic reaction, local tissue breakdown, stroke, temporary or permanent nerve injury, paralysis, and possible , the patient indicated that they understood and agreed to proceed.? An informed consent document was signed by the patient, witnessed by a nurse and placed in the patient's chart.? Additionally, other treatment options including medications and physical therapy were reviewed with the patient. All questions were answered. Site was then marked. Anesthesia: Local Position: Prone Monitoring: NIBP, Pulse oximetry, 3 lead EKG Needle used: 18 G 3.5? Tuohy Contrast: Isovue 300M Injectate: Dexamethasone 15 mg with 1% lidocaine 1.5 mL Technique: The skin was prepped with chloraprep and then draped in a sterile fashion. Time out was performed as per protocol. Oxygen applied via NC. Skin and subcutaneous structures of the needle entry site was then infiltrated with 3 mL of lidocaine 1%. Under AP, lateral and contralateral oblique fluoroscopic control, the Tuohy needle was guided into the L4-5 epidural space. The space was accessed with loss of resistance technique. Isovue 300M was then injected and the spread was consistent with the epidural space. There was no evidence for intravascular or intrathecal uptake. After negative aspiration, the above- mentioned injectate was then slowly administered and the needle withdrawn. The patient expressed no unusual discomfort or paresthesias during the injection. Band-Aids applied to injection sites. EBL: less than 1 ml Complications: None Post Procedure: Patient was taken to the recovery and monitored. The patient was provided a Pain Log to continue to record the patient's response to the target- specific procedure prior to the patient's follow-up visit with the referring physician. Patient was stable upon discharge. Detailed post procedure instructions were provided. Patient was asked to call in the event of worsening pain, fever, weakness, numbness or bladder or bowel incontinence.
[2023-01-01 09:23] VITALS: BP 145/82; PULSE 80; RESP 14; O2SAT 100
== END 2023-01-01 09:28 | disposition home or self-care (01) ==
PROVIDERS: PCP Student in an Organized Health Care Education/Training Program; Referring Provider Anesthesiology; Visit Provider Anesthesiology
DX: M54.16 Radiculopathy, lumbar region (principal)
CPT/HCPCS: 62323; J1100

== ENCOUNTER → 2023-04-26 13:52 | Outpatient (CLI) | payer OTHER, MEDICAID, SELFPAY ==
--- NOTE | 2023-04-26 13:54 | DI.RAD.S_ITS ---
PROCEDURE: XR KNEE LT 3V INDICATIONS: Knee pain TECHNIQUE: 3 views of the knee were acquired. COMPARISON: [facility], CR, XR KNEE LT 3V, 12/06/2021, 16:03. FINDINGS: Bones: No fractures or dislocations. No suspicious bony lesions mild interval progression of degenerative arthritis with increased medial compartment joint space loss, at least moderate to severe. Tricompartment osteophytes.. Soft tissues: No joint effusion. No suspicious soft tissue calcifications. IMPRESSION: Progressive degenerative arthritis of the left knee. Dictated by: Albaro Hernandez M.D. on 04/26/2023 at 15:43 Approved by: Albaro Hernandez M.D. on 04/26/2023 at 15:44
--- NOTE | 2023-04-26 13:54 | DI.RAD.S_ITS ---
PROCEDURE: XR KNEE RT 3V INDICATIONS: Knee pain TECHNIQUE: 3 views of the knee were acquired. COMPARISON: [facility], [place], XR KNEE RT 3V, 03/21/2019, 13:22. [facility], [place], XR KNEE LT 3V, 12/06/2021, 16:03. FINDINGS: Bones: No fractures or dislocations. No suspicious bony lesions. Mild interval progression of degenerative arthritis with increased medial compartment joint space loss, moderate. Soft tissues: No joint effusion. No suspicious soft tissue calcifications. IMPRESSION: Mild interval progression of degenerative arthritis. Dictated by: Albaro Hernandez M.D. on 04/26/2023 at 15:44 Approved by: Albaro Hernandez M.D. on 04/26/2023 at 15:45
== END ==
PROVIDERS: PCP Family Medicine; Referring Provider Anesthesiology; Visit Provider Anesthesiology
DX: M17.0 Bilateral primary osteoarthritis of knee (principal)
CPT/HCPCS: 73562

== ENCOUNTER 2023-06-04 13:30 | Outpatient (CLI) | payer OTHER, MEDICAID, SELFPAY ==
[2023-06-04] VITALS (8 sets, daily range): BP systolic 142–192; BP diastolic 73–103; PULSE 82–99; RESP 14–21; TEMP 36.4; O2SAT 96–100
[2023-06-04] MEDS: MIDAZOLAM 2 MG/2 ML VIAL IV (13:55)
[2023-06-04] MEDS: iopamidoL 15 ML VIAL 3 ML INJ (13:58)
[2023-06-04] MEDS: DEXAMETHASONE 10 MG/ML VIAL INJ (13:58)
--- NOTE | 2023-06-04 14:00 | DI.RAD.S_ITS ---
PROCEDURE: PAIN L INTERLAMINAR/CAUDAL INJ INDICATIONS: SPONDYLOSIS COMPARISON: [facility], XA, PAIN L INTERLAMINAR/CAUDAL INJ, 01/01/2023, 9:07. FINDINGS: Fluoroscopic spot filming was performed to verify placement of spinal needles at the L4-5 level(s), as labeled on the films. Appropriate location(s) of the needle tip(s) was confirmed by injection of iodinated contrast. IMPRESSION: Fluoro guidance was provided intraoperatively for L4-5 interlaminar epidural steroid injection performed by the ordering physician. Dictated by: Ch[place] Sarah M.D. on 06/04/2023 at 17:40 Approved by: Ch[place] Sarah M.D. on 06/04/2023 at 17:40
--- NOTE | 2023-06-04 16:11 | P.PCN_ITS ---
Date/Time/Diagnoses Date of procedure: 06/04/23 Time of procedure: 14:00 Procedure Notes Physician: Vargas Medina Total Fluoroscopy time (seconds): 15 Total sedation minutes: 10 Procedure in detail & Post-procedure care: L4-5 Interlaminar Epidural Steroid Injection Indications: Yris is presenting for treatment of lumbar radiculopathy with low back and leg pain. Preoperative diagnosis: Lumbar radiculopathy Postoperative diagnosis: Same Focused Examination: Ax3 Mood and affect are normal Vital Signs: VSS ASA: 3 Consent: Following review of allergies and potential side effects/complications, including, but not necessarily limited to, infection, allergic reaction, local tissue breakdown, stroke, temporary or permanent nerve injury, paralysis, and possible , the patient indicated that they understood and agreed to proc eed.? An informed consent document was signed by the patient, witnessed by a nurse and placed in the patient's chart.? Additionally, other treatment options including medications and physical therapy were reviewed with the patient. All questions were answered. Site was then marked. Anesthesia: After review of previous anesthetic history and IV conscious sedation, the patient was deemed safe to proceed with today's procedure with IV conscious sedation. IV sedation was accomplished with midazolam 2 mg administered by the RN after order by Dr. Medina. Sedation was titrated to patient comfort during the course of the procedure. Patient remained responsive to all verbal commands. Position: Prone Monitoring: NIBP, Pulse oximetry, 3 lead EKG Needle used: 18 G, 5? Tuohy Contrast: Isovue 300M Injectate: Dexamethasone 10 mg with 1% lidocaine 2 mL Technique: The skin was prepped with chloraprep and then draped in a sterile fashion. Time out was performed as per protocol. Oxygen applied via NC. Skin and subcutaneous structures of the needle entry site was then infiltrated with 3 mL of lidocaine 1%. Under AP, lateral and contralateral oblique fluoroscopic control, the Tuohy needle was guided into the L4-5 epidural space. The space was accessed with loss of resistance technique. Isovue 300M was then injected and the spread was consistent with the epidural space. There was no evidence for intravascular or intrathecal uptake. After negative aspiration, the above- mentioned injectate was then slowly administered and the needle withdrawn. The patient expressed no unusual discomfort or paresthesias during the injection. Band-Aids applied to injection sites. EBL: less than 1 ml Complications: None Post Procedure: Patient was taken to the recovery and monitored. The patient was provided a Pain Log to continue to record the patient's response to the target- specific procedure prior to the patient's follow-up visit with the referring physician. Patient was stable upon discharge. Detailed post procedure instructions were provided. Patient was asked to call in the event of worsening pain, fever, weakness, numbness or bladder or bowel incontinence.
== END 2023-06-04 14:32 | disposition home or self-care (01) ==
LOC: RAD 13:30
PROVIDERS: PCP Family Medicine; Referring Provider Anesthesiology; Visit Provider Anesthesiology
DX: M54.16 Radiculopathy, lumbar region (principal)
CPT/HCPCS: 62323; 99152; J1100; J2250

== ENCOUNTER 2023-10-15 12:24 | Outpatient (CLI) | payer OTHER, MEDICAID, SELFPAY ==
[2023-10-15] VITALS (8 sets, daily range): BP systolic 126–182; BP diastolic 77–106; PULSE 76–88; RESP 14–23; TEMP 36.6; O2SAT 97–100
--- NOTE | 2023-10-15 12:56 | DI.RAD.S_ITS ---
PROCEDURE: PAIN L INTERLAMINAR/CAUDAL INJ INDICATIONS: rADICULOPATHY COMPARISON: [facility], XA, PAIN L INTERLAMINAR/CAUDAL INJ, 06/04/2023, 14:58. FINDINGS: Fluoroscopic spot filming was performed to verify placement of a spinal needle at the L4-L5 level, as labeled on the films. Appropriate location of the needle tip was confirmed by injection of iodinated contrast. IMPRESSION: Intraprocedural examination within normal limits. Dictated by: Mina Newman M.D. on 10/15/2023 at 17:53 Approved by: Mina Newman M.D. on 10/15/2023 at 17:53
[2023-10-15] MEDS: MIDAZOLAM 2 MG/2 ML VIAL IV (13:10)
[2023-10-15] MEDS: DEXAMETHASONE 10 MG/ML VIAL INJ (13:13)
[2023-10-15] MEDS: iopamidoL 15 ML VIAL 3 ML INJ (13:13)
--- NOTE | 2023-10-15 14:06 | P.PCN_ITS ---
Date/Time/Diagnoses Date of procedure: 10/15/23 Time of procedure: 13:00 Procedure Notes Physician: Vargas Medina Total Fluoroscopy time (seconds): 14 Total sedation minutes: 10 Procedure in detail & Post-procedure care: L4-5 Interlaminar Epidural Steroid Injection Indications: Yris is presenting for treatment of lumbar radiculopathy with low back and leg pain. Preoperative diagnosis: Lumbar radiculopathy Postoperative diagnosis: Same Focused Examination: Ax3 Mood and affect are normal Vital Signs: VSS ASA: 3 Consent: Following review of allergies and potential side effects/complications, including, but not necessarily limited to, infection, allergic reaction, local tissue breakdown, stroke, temporary or permanent nerve injury, paralysis, and possible , the patient indicated that they understood and agreed to proc eed.? An informed consent document was signed by the patient, witnessed by a nurse and placed in the patient's chart.? Additionally, other treatment options including medications and physical therapy were reviewed with the patient. All questions were answered. Site was then marked. Anesthesia: After review of previous anesthetic history and IV conscious sedation, the patient was deemed safe to proceed with today's procedure with IV conscious sedation. IV sedation was accomplished with midazolam 2 mg administered by the RN after order by Dr. Medina. Sedation was titrated to patient comfort during the course of the procedure. Patient remained responsive to all verbal commands. Position: Prone Monitoring: NIBP, Pulse oximetry, 3 lead EKG Needle used: 18 ga, 5? Tuohy Contrast: Isovue 300M Injectate: Dexamethasone 10 mg with 1% lidocaine 2 mL Technique: The skin was prepped with chloraprep and then draped in a sterile fashion. Time out was performed as per protocol. Oxygen applied via NC. Skin and subcutaneous structures of the needle entry site was then infiltrated with 3 mL of lidocaine 1%. Under AP, lateral and contralateral oblique fluoroscopic control, the Tuohy needle was guided into the L4-5 epidural space. The space was accessed with loss of resistance technique. Isovue 300M was then injected and the spread was consistent with the epidural space. There was no evidence for intravascular or intrathecal uptake. After negative aspiration, the above- mentioned injectate was then slowly administered and the needle withdrawn. The patient expressed no unusual discomfort or paresthesias during the injection. Band-Aids applied to injection sites. EBL: less than 1 ml Complications: None Post Procedure: Patient was taken to the recovery and monitored. The patient was provided a Pain Log to continue to record the patient's response to the target- specific procedure prior to the patient's follow-up visit with the referring physician. Patient was stable upon discharge. Detailed post procedure instructions were provided. Patient was asked to call in the event of worsening pain, fever, weakness, numbness or bladder or bowel incontinence.
== END 2023-10-15 13:48 | disposition home or self-care (01) ==
PROVIDERS: Referring Provider Anesthesiology; Visit Provider Anesthesiology
DX: M54.16 Radiculopathy, lumbar region (principal)
CPT/HCPCS: 62323; 99152; J1100; J2250

== ENCOUNTER → 2024-01-23 13:58 | Outpatient (CLI) | payer OTHER, MEDICAID, SELFPAY ==
[2024-01-23 15:33] LABS: Erythrocyte Sedimentation Rate 35 MM/HR (0-20); Rheumatoid Factor < 8.6 IU/mL (<12.0)
[2024-01-26 15:08] LABS: CCP Antibodies IgG/IgA 4 units (0-19)
[2024-01-27 13:36] LABS: ANA Screen, IFA Negative (.)
== END ==
PROVIDERS: Referring Provider Anesthesiology; Visit Provider Anesthesiology
DX: M19.90 Unspecified osteoarthritis, unspecified site (principal)
CPT/HCPCS: 36415; 85651; 86038; 86140; 86200; 86430

== ENCOUNTER 2024-04-29 07:27 | Outpatient (CLI) | payer OTHER, MEDICAID, SELFPAY ==
[2024-04-29] VITALS (9 sets, daily range): BP systolic 146–194; BP diastolic 85–116; PULSE 76–95; RESP 16–20; TEMP 36.4; O2SAT 99–100
--- NOTE | 2024-04-29 08:15 | DI.RAD.S_ITS ---
PROCEDURE: PAIN L INTERLAMINAR/CAUDAL INJ INDICATIONS: L4 5 TL DUAY COMPARISON: [facility], , PAIN L INTERLAMINAR/CAUDAL INJ, 10/15/2023, 13:12. FINDINGS: Fluoroscopic spot filming was performed to verify placement of a spinal needle at the L4-L5 level, as labeled on the films. Appropriate location of the needle tip was confirmed by injection of iodinated contrast. IMPRESSION: Intraprocedural examination within normal limits. Dictated by: Mina Newman M.D. on 04/29/2024 at 9:40 Approved by: Mina Newman M.D. on 04/29/2024 at 9:41
[2024-04-29] MEDS: MIDAZOLAM 2 MG/2 ML VIAL IV (08:22)
[2024-04-29] MEDS: BUPIVACAINE 0.25% (PF) VIAL 2 ML INJ (08:28)
[2024-04-29] MEDS: DEXAMETHASONE 10 MG/ML VIAL INJ (08:28)
[2024-04-29] MEDS: BETAMETHASONE 30 MG/5 ML MDV 6 MG INJ (08:29)
[2024-04-29] MEDS: iopamidoL 15 ML VIAL 3 ML INJ (08:29)
[2024-04-29] MEDS: MIDAZOLAM 5 MG/ML VIAL 1 MG IV (08:31)
--- NOTE | 2024-04-29 08:50 | P.PCN_ITS ---
Date/Time/Diagnoses Date of procedure: 04/29/24 Time of procedure: 08:51 Pre-procedure diagnosis: 1. HNP WITH RADICULAR FEATURES, 2. MULTILEVEL CENTRAL STENOSIS, Post-procedure diagnosis: same Procedure Notes Procedure: 1. FLUOROSCOPICALLY GUIDED CONTRAST CONTROLLED INTERLAMINAR EPIDURAL STEROID INJECTION -L4/5 Indications: Yris is referred by Dr. Wynne for treatment of Bilateral Foraminal Stenosis R>L LE symptoms. Physician: Fernando Ponce Total Fluoroscopy time (seconds): 12 Total sedation minutes: 19 Complications: none Procedure in detail & Post-procedure care: FINDINGS Multilevel Central Spinal Stenosis with Nerve Root Compression DESCRIPTION OF PROCEDURE Fluoroscopically guided, contrast-controlled L4/5 translaminar epidural steroid injection. Following review of allergy and review of potential side effects and complications, including, but not necessarily limited to, infection, allergic reaction, local tissue breakdown, temporary as well as permanent nerve injury, paralysis, stroke and possible , the patient indicated that the patient understood and agreed to proceed. An informed consent document was signed by the patient, witnessed by a nurse, and placed in the patient's chart. Additionally, other treatment options including modalities, medications, and physical therapy were reviewed with the patient. After review of previous anaesthesic history and IV conscious sedation the patient was deemed safe to proceed with today?s procedure with IV conscious sedation as ASA class II designation. Safety time-out was performed to confirm patient ID, procedure to be performed and site of procedure. IV sedation was accomplished with a combination of 3mg of Versed was administered by the RN after DO order, titrated to patient comfort during the course of the procedure while the patient remained responsive to all verbal commands In the prone position, following sterile prep and drape of the lumbar region, the L4/5 translaminar space was identified fluoroscopically. The skin was anesthetized via a 25-gauge, 1.5inch needle with 1% lidocaine solution. At this point, a 22-gauge short bevel spinal needle was atraumatically introduced and advanced under fluoroscopic guidance into the region of the L4/5 translaminar space. Depth was confirmed on lateral view. Radiological data, including multiple fluoroscopic views of the lumbar spine, reveal a spinal needle at the L4/5 translaminar space. Lateral views then show placement of the needle in the epidural space. Subsequent views show contrast material flowing superiorly and inferiorly in the epidural space. No vascular or intrathecal uptake is observed. At this point, using loss of resistance technique with saline and air, the epidural space was entered. This was confirmed following negative aspiration with injection of approximately 1.5cc of Isovue 200, showing excellent epidural flow without vascular or intrathecal uptake. At this point, 1cc of 1% lidocaine solution combined with 2cc or 10mg of dexamethasone and 6mg betamethasone was injected without incident. The patient tolerated the procedure well without signs or symptoms of complications prior to transfer to the recovery area continued monitoring without incident. The patient was then transferred to the recovery area where they were observed for an appropriate period of time after the injection. The patient reported a VAS score of 8 prior to the procedure and a post- procedure VAS of 1. POST OP INSTRUCTIONS The patient was provided a Pain Log to continue to record their response to the target-specific procedure prior to follow-up visit with their referring physician. Additionally, specific post-injection care instructions and a contact number to our office were provided if concerns arise regarding possible complications associated with the procedure are suspected.
== END 2024-04-29 09:05 | disposition home or self-care (01) ==
LOC: RAD 07:27
PROVIDERS: PCP Student in an Organized Health Care Education/Training Program; Referring Provider Physical Medicine & Rehabilitation; Visit Provider Physical Medicine & Rehabilitation
DX: M51.16 Intervertebral disc disorders with radiculopathy, lumbar region (principal); M48.061 Spinal stenosis, lumbar region without neurogenic claudication
CPT/HCPCS: 62323; 99152; J0702; J1100; J2250; J3490

== ENCOUNTER 2024-11-23 13:03 | Outpatient (CLI) | payer OTHER, SELFPAY ==
[2024-11-23] VITALS (8 sets, daily range): BP systolic 129–176; BP diastolic 77–103; PULSE 80–90; RESP 16–18; TEMP 36.6; O2SAT 97–100
[2024-11-23] MEDS: MIDAZOLAM 2 MG/2 ML VIAL IV ×2 (14:14→14:18)
[2024-11-23] MEDS: DEXAMETHASONE 10 MG/ML VIAL INJ (14:21)
[2024-11-23] MEDS: BUPIVACAINE 0.25% (PF) VIAL 2 ML INJ (14:21)
[2024-11-23] MEDS: BETAMETHASONE 30 MG/5 ML MDV 12 MG INJ (14:22)
[2024-11-23] MEDS: iopamidoL 15 ML VIAL 3 ML INJ (14:22)
--- NOTE | 2024-11-23 14:30 | P.PCN_ITS ---
Date/Time/Diagnoses Date of procedure: 11/23/24 Time of procedure: 14:30 Pre-procedure diagnosis: 1. HNP WITH RADICULAR FEATURES, 2. MULTILEVEL CENTRAL STENOSIS, Post-procedure diagnosis: same Procedure Notes Procedure: 1. FLUOROSCOPICALLY GUIDED CONTRAST CONTROLLED INTERLAMINAR EPIDURAL STEROID INJECTION -L4/5 Indications: Yris is referred by Dr. Wynne for treatment of Bilateral Foraminal Stenosis R>L LE symptoms. Physician: Fernando Ponce Total Fluoroscopy time (seconds): 7 Total sedation minutes: 10 Complications: none Procedure in detail & Post-procedure care: FINDINGS Multilevel Central Spinal Stenosis with Nerve Root Compression DESCRIPTION OF PROCEDURE Fluoroscopically guided, contrast-controlled L4/5 translaminar epidural steroid injection. Following review of allergy and review of potential side effects and complications, including, but not necessarily limited to, infection, allergic reaction, local tissue breakdown, temporary as well as permanent nerve injury, paralysis, stroke and possible , the patient indicated that the patient understood and agreed to proceed. An informed consent document was signed by the patient, witnessed by a nurse, and placed in the patient's chart. Additionally, other treatment options including modalities, medications, and physical therapy were reviewed with the patient. After review of previous anaesthesic history and IV conscious sedation the patient was deemed safe to proceed with today?s procedure with IV conscious sedation as ASA class II designation. Safety time-out was performed to confirm patient ID, procedure to be performed and site of procedure. IV sedation was accomplished with a combination of 2mg of Versed was administered by the RN after DO order, titrated to patient comfort during the course of the procedure while the patient remained responsive to all verbal commands In the prone position, following sterile prep and drape of the lumbar region, the L4/5 translaminar space was identified fluoroscopically. The skin was anesthetized via a 25-gauge, 1.5inch needle with 1% lidocaine solution. At this point, a 22-gauge short bevel spinal needle was atraumatically introduced and advanced under fluoroscopic guidance into the region of the L4/5 translaminar space. Depth was confirmed on lateral view. Radiological data, including multiple fluoroscopic views of the lumbar spine, reveal a spinal needle at the L4/5 translaminar space. Lateral views then show placement of the needle in the epidural space. Subsequent views show contrast material flowing superiorly and inferiorly in the epidural space. No vascular or intrathecal uptake is observed. At this point, using loss of resistance technique with saline and air, the epidural space was entered. This was confirmed following negative aspiration with injection of approximately 1.5cc of Isovue 200, showing excellent epidural flow without vascular or intrathecal uptake. At this point, 1cc of 1% lidocaine solution combined with 2cc or 10mg of dexamethasone and 12mg betamethasone was injected without incident. The patient tolerated the procedure well without signs or symptoms of complications prior to transfer to the recovery area continued monitoring without incident. The patient was then transferred to the recovery area where they were observed for an appropriate period of time after the injection. The patient reported a VAS score of 9 prior to the procedure and a post- procedure VAS of 0. POST OP INSTRUCTIONS The patient was provided a Pain Log to continue to record their response to the target-specific procedure prior to follow-up visit with their referring physician. Additionally, specific post-injection care instructions and a contact number to our office were provided if concerns arise regarding possible complications associated with the procedure are suspected.
== END 2024-11-23 15:13 | disposition home or self-care (01) ==
LOC: RAD 13:04
PROVIDERS: PCP Student in an Organized Health Care Education/Training Program; Referring Provider Physical Medicine & Rehabilitation; Visit Provider Physical Medicine & Rehabilitation
DX: M51.16 Intervertebral disc disorders with radiculopathy, lumbar region (principal); M48.061 Spinal stenosis, lumbar region without neurogenic claudication
CPT/HCPCS: 62323; 99152; J0702; J1100; J2250; J3490